=== PATIENT | male | born 1980 | race Caucasian/White ===

== ENCOUNTER 2018-11-20 09:57 | Emergency (ER) | payer OTHER ==
[2018-11-20 10:14] VITALS: BP 138/78
--- NOTE | 2018-11-20 10:49 | UC ---
Throat Pain/Nasal Antoine HPI - HPI Summary HPI Summary: Patient is a 38-year-old male with a one-week history of diarrhea. He has had 1 -4 episodes of diarrhea per day. He has had some nausea. He denies any vomiting. He has had no abdominal pain. He has not had fever chills or myalgias. He has had some nasal congestion as well as some mild right otalgia. He also has a sore throat primarily on the right side. He states it hurts when he swallows. He has had no chest pain or shortness of breath. He denies any cough. - History of Current Complaint Chief Complaint: UCGeneralIllness Stated Complaint: CONGESTION,MASON,ST Time Seen by Provider: 11/20/18 10:30 Hx Obtained From: Patient Onset/Duration: Gradual Onset Severity: Moderate Pain Intensity: 4 Pain Scale Used: 0-10 Numeric Associated Signs & Symptoms: Positive: Sinus Discomfort, Nasal Discharge. Negative: Dysphagia, FB Sensation, Drooling, Wheezing, Hoarseness, Fever, Vomiting, Rash - Epiglottits Risk Factors Epiglottis Risk Factors: Negative - Allergies/Home Medications Allergies/Adverse Reactions: Allergies Allergy/AdvReac Type Severity Reaction Status Date / Time No Known Allergies Allergy Verified 11/20/18 10:11 Home Medications: Home Medications Acetaminophen TAB* [Tylenol TAB*] 650 mg PO Q4H PRN 11/20/18 [History Confirmed 11/20/18] PMH/Surg Hx/FS Hx/Imm Hx Previously Healthy: Yes - Surgical History Surgical History: Yes Surgery Procedure, Year, and Place: Benign Cyst Removals - Family History Known Family History: Positive: Hypertension - Social History Alcohol Use: Rare Substance Use Type: None Smoking Status (MU): Former Smoker Length of Time of Smoking/Using Tobacco: ~1/2 PPD x 8 Years When Did the Patient Quit Smoking/Using Tobacco: 2009 Review of Systems All Other Systems Reviewed And Are Negative: Yes Constitutional: Positive: Fatigue Skin: Positive: Negative Eyes: Positive: Drainage - R, Eye Redness - R ENT: Positive: Sore Throat, Ear Ache - R, Sinus Congestion. Negative: Sinus Pain/Tenderness Respiratory: Positive: Negative Cardiovascular: Positive: Negative Gastrointestinal: Positive: Diarrhea, Nausea. Negative: Abdominal Pain, Vomiting Genitourinary: Positive: Negative Motor: Positive: Negative Neurovascular: Positive: Negative Musculoskeletal: Positive: Negative Neurological: Positive: Negative Psychological: Positive: Negative Physical Exam Triage Information Reviewed: Yes Appearance: Well-Appearing, No Pain Distress, Well-Nourished Vital Signs: Initial Vital Signs Temp 97.8 F 11/20/18 10:08 Pulse 68 11/20/18 10:08 Resp 14 11/20/18 10:08 BP 138/78 11/20/18 10:08 Pulse Ox 100 11/20/18 10:08 Vital Signs Reviewed: Yes Eyes: Positive: Conjunctiva Inflamed - R>L, Discharge - R ENT: Positive: Hearing grossly normal, Pharyngeal erythema, Nasal congestion, TMs normal - L, TM bulging - R, Uvula midline. Negative: Nasal drainage, TM dull, TM red, Tonsillar swelling, Tonsillar exudate, Trismus, Muffled voice, Hoarse voice, Dental tenderness, Sinus tenderness Neck: Positive: Supple, Nontender, Enlarged Nodes @ - ant cervical R>L Respiratory: Positive: Lungs clear, Normal breath sounds, No respiratory distress, No accessory muscle use Cardiovascular: Positive: RRR, No Murmur Musculoskeletal: Positive: ROM Intact, No Edema Neurological: Positive: Alert Psychological Exam: Normal Skin Exam: Normal Throat Pain/Nasal Course/Dx - Course Course Of Treatment: strep (-) - Differential Dx/Diagnosis Provider Diagnosis: Upper respiratory infection, Right serous otitis media, Conjunctivitis, acute, bilateral Discharge - Sign-Out/Discharge Documenting (check all that apply): Patient Departure All imaging exams completed and their final reports reviewed: No Studies - Discharge Plan Condition: Stable Disposition: HOME Prescriptions: Polymyx/Trimethoprim OPTH* [Polytrim OPHTH*] 1 - 2 drop BOTH EYES QID #1 btl Patient Education Materials: Nutrition Tips for Relief of Diarrhea (ED), Serous Otitis Media (ED), Conjunctivitis (ED) Referrals: No Primary Care Phys,NOPCP [Primary Care Provider] - Additional Instructions: recheck in 1 week if not better - Billing Disposition and Condition Condition: STABLE Disposition: Home
== END 2018-11-20 11:23 | disposition home or self-care (01) ==
LOC: UCCORT 09:57
DX: J06.9 Acute upper respiratory infection, unspecified (principal); H65.91 Unspecified nonsuppurative otitis media, right ear; H10.33 Unspecified acute conjunctivitis, bilateral; R11.0 Nausea; Z87.891 Personal history of nicotine dependence
CPT/HCPCS: 87651; 99202; G0463

== ENCOUNTER 2019-09-15 11:06 | Emergency (ER) | payer BC, OTHER ==
[2019-09-15 11:21] VITALS: BP 147/89
--- NOTE | 2019-09-15 11:30 | UC ---
Respiratory Complaint HPI - HPI Summary HPI Summary: 38 year old male with no PMH presents with right sided lower rib pain x 1 month. Constant dull ache, 1/10 however will increase to 5/10 without illiciting event. has woken him up at night. no difficulty breathing, no coughing. did have cold over thanksgiving with some coughing. Has 9month old , 3 year old which he lifts, has not note any straining with lifting. no prior injuries, trauma. - History of Current Complaint Stated Complaint: RT LOW RIB PAIN Time Seen by Provider: 09/15/19 11:20 Hx Obtained From: Patient Onset/Duration: Sudden Onset, Lasting Weeks - 4 weeks Timing: Constant Severity Initially: Moderate Severity Currently: Moderate Pain Intensity: 4 Pain Scale Used: 0-10 Numeric Associated Signs And Symptoms: Negative: Fever, Chills, Wheezing, Hemoptysis, Dizziness, Calf Pain, Calf Swelling, URI, Nasal Congestion, Hoarseness, Sinus Discomfort - Allergies/Home Medications Allergies/Adverse Reactions: Allergies Allergy/AdvReac Type Severity Reaction Status Date / Time No Known Allergies Allergy Verified 09/15/19 11:17 PMH/Surg Hx/FS Hx/Imm Hx Previously Healthy: Yes - Surgical History Surgical History: Yes Surgery Procedure, Year, and Place: Benign Cyst Removals - Family History Known Family History: Positive: Hypertension - Social History Occupation: Employed Full-time Alcohol Use: Rare Substance Use Type: None Smoking Status (MU): Former Smoker Length of Time of Smoking/Using Tobacco: ~1/2 PPD x 8 Years When Did the Patient Quit Smoking/Using Tobacco: 2009 Review of Systems All Other Systems Reviewed And Are Negative: Yes Constitutional: Negative: Fever, Chills, Fatigue Musculoskeletal: Positive: Edema, Myalgia Neurological: Positive: Negative Psychological: Positive: Negative Is Patient Immunocompromised?: No Physical Exam Triage Information Reviewed: Yes Appearance: Well-Appearing, No Pain Distress, Well-Nourished Vital Signs: Initial Vital Signs Temp 98.1 F 09/15/19 11:17 Pulse 66 09/15/19 11:17 Resp 15 09/15/19 11:17 BP 147/89 09/15/19 11:17 Pulse Ox 97 09/15/19 11:17 Vital Signs Reviewed: Yes Eyes: Positive: Conjunctiva Clear Respiratory: Positive: Chest non-tender, Lungs clear, Normal breath sounds, No respiratory distress, No accessory muscle use, Other: - no pain with deep breathing. Negative: Respiratory distress, Decreased breath sounds, Crackles, Rhonchi, Stridor Musculoskeletal: Positive: Strength Intact, ROM Intact, Other: - non-tender over area nipple line lower rib, intercostal region where patient states pain typically is. Neurological Exam: Normal Psychological Exam: Normal Respiratory Course/Dx - Course Course Of Treatment: LIkely costochondritis due to s/s, however x-ray done to rule out mass- read and reviewed at negative - Naproxen twice daily x 5 days to decrease swelling, inflammation - Decrease exercise, movements, lifting x 2-3 days to help with healing. - Return within 1 week if symptoms persist. Patient Name: CONCHITA PARIKH Medical Record#: [id number] Ordering Physician: Charis STAHL Acct.#: [id number] : 1980 Age: 38 Sex: M [facility] : [facility] Exam Date: 09/15/19 1133 ADM Status: REG ER Order Information: RIBS RIGHT UNILATERAL 2 VWS Accession Number: [id number] CPT: 07990 Indication: Anterior RIGHT rib pain without known injury. COMPARISON: No relevant prior exams available on the [facility] for comparison. Technique: Dual- energy PA chest and 3 dedicated RIGHT rib views Report: #. Negative for RIGHT rib fracture or focal osseous lesion. #. Clear lungs and pleural spaces. Negative for pneumothorax. #. The heart, pulmonary vasculature, and mediastinal contours are unremarkable. IMPRESSION: #. No RIGHT rib fracture or other radiographic abnormality evident. Negative exam. - Differential Dx/Diagnosis Differential Diagnosis/HQI/PQRI: Laryngitis, Sinusitis Provider Diagnosis: Costochondritis Discharge ED - Sign-Out/Discharge Documenting (check all that apply): Patient Departure All imaging exams completed and their final reports reviewed: Yes - Discharge Plan Condition: Good Disposition: HOME Prescriptions: Naproxen [Naproxen 250 mg tab] 250 mg PO BID #14 tablet Patient Education Materials: Costochondritis (ED) Referrals: [facility] [Outside] No Primary Care Phys,NOPCP [Primary Care Provider] - Additional Instructions: - Naproxen twice daily x 5 days to decrease swelling, inflammation - Decrease exercise, movements, lifting x 2-3 days to help with healing. - Return within 1 week if symptoms persist. Patient Name: CONCHITA PARIKH Medical Record#: [id number] Ordering Physician: Charis STAHL Acct.#: [id number] : 1980 Age: 38 Sex: M Location : [facility] Exam Date: 09/15/19 1133 ADM Status: REG ER Order Information: RIBS RIGHT UNILATERAL 2 VWS Accession Number: [id number] CPT: 83259 Indication: Anterior RIGHT rib pain without known injury. COMPARISON: No relevant prior exams available on the [facility] for comparison. Technique: Dual- energy PA chest and 3 dedicated RIGHT rib views Report: #. Negative for RIGHT rib fracture or focal osseous lesion. #. Clear lungs and pleural spaces. Negative for pneumothorax. #. The heart, pulmonary vasculature, and mediastinal contours are unremarkable. IMPRESSION: #. No RIGHT rib fracture or other radiographic abnormality evident. Negative exam. - Billing Disposition and Condition Condition: GOOD Disposition: Home
== END 2019-09-15 12:08 | disposition home or self-care (01) ==
LOC: UCCORT 11:06
DX: M94.0 Chondrocostal junction syndrome [Tietze] (principal); Z87.891 Personal history of nicotine dependence
CPT/HCPCS: 99212; G0463